=== PATIENT | male | born 1980 | race Caucasian/White ===

== ENCOUNTER 2017-11-12 23:12 | Emergency (ER) | payer SELFPAY ==
[~2017-11-12] VITALS: Ht 172.7 cm; Wt 81.8 kg
[2017-11-12 23:13] VITALS: BP 143/93
[2017-11-12] MEDS ORDERED: CLON.5 PO (23:15)
== END 2017-11-13 00:10 | disposition left against medical advice (07) ==
LOC: EMS 23:14
DX: T40.7X1A Poisoning by cannabis (derivatives), accidental (unintentional), initial encounter (principal); F12.90 Cannabis use, unspecified, uncomplicated; Z53.21 Procedure and treatment not carried out due to patient leaving prior to being seen by health care provider